=== PATIENT | female | born 2000 | race Hispanic/Latino ===

== ENCOUNTER → 2025-06-01 | Outpatient (CLI) | payer BC, SELFPAY ==
--- NOTE | 2025-06-02 01:29 | HMCIMG ---
EXAM: MR KNEE LEFT CLINICAL HISTORY: History of other instability. TECHNIQUE: Multiplanar magnetic resonance images of the left knee obtained. CONTRAST: None. COMPARISON: No priors are available for comparison. FINDINGS: MENISCI: Inferior flap tear of the junction of the body and the posterior horn of the medial meniscus, series 9, image 8/25. Lateral meniscus unremarkable. CRUCIATE LIGAMENTS: Thickening with intrasubstance edema involving the posteromedial and the anterolateral bundles of the anterior cruciate ligament, which may represent grade I sprain. Posterior cruciate ligament is intact. COLLATERAL LIGAMENTS: Medial collateral ligament and lateral collateral ligamentous complex, inclusive of the popliteal tendon, are intact. JOINT: Trace amount of effusion is present in the knee joint. No synovial hypertrophy or intra-articular body. CARTILAGE: Articular cartilage intact. BONE: No fracture or abnormal bone marrow signal. MUSCLES: Unremarkable. OTHER SOFT TISSUES: Unremarkable. No popliteal cyst. IMPRESSION: 1. Inferior flap tear of the junction of the body and the posterior horn of the medial meniscus. 2. Grade I sprain of the anterior cruciate ligament. 3. Trace knee joint effusion. /[place]
== END | disposition home or self-care (01) ==
LOC: RAH 15:07
PROVIDERS: ATTEND Orthopaedic Surgery
DX: S83.242A Other tear of medial meniscus, current injury, left knee, initial encounter (principal); S83.512A Sprain of anterior cruciate ligament of left knee, initial encounter; R60.0 Localized edema; M25.362 Other instability, left knee; X58.XXXA Exposure to other specified factors, initial encounter; Y93.89 Activity, other specified; Y92.89 Other specified places as the place of occurrence of the external cause; Y99.8 Other external cause status
CPT/HCPCS: 73721